=== PATIENT | male | born 1970 | race Caucasian/White ===

== ENCOUNTER 2024-05-08 22:23 | Inpatient (IN) | payer BC ==
[2024-05-09] MEDS ORDERED: Ondansetron ODT 4 MG TAB SL PRN (00:15)
[2024-05-09] MEDS ORDERED: Ondansetron PF 4 MG/2 ML Vial IVP PRN ×2 (00:15→00:50)
[2024-05-09] MEDS ORDERED: Sodium Chloride 0.9% 1,000 ML IV SCH (00:15)
[2024-05-09] MEDS ORDERED: Morphine 4 MG/ML VIAL ONE (00:43)
[2024-05-09] MEDS ORDERED: Dextrose 5% in Water 1,000 ML IV PRN (00:50)
[2024-05-09] MEDS ORDERED: Acetaminophen 325 MG TAB PO PRN (00:50)
[2024-05-09] MEDS ORDERED: Dextrose 50% Abboject 50 ML SYRINGE SLOW IVP PRN (00:50)
[2024-05-09] MEDS ORDERED: Glucagon 1 MG/ML KIT IM PRN (00:50)
[2024-05-09] MEDS ORDERED: Morphine 2 MG/ML VIAL SLOW IVP PRN (00:54)
[2024-05-09 01:20] VITALS: BMI 39.4
[2024-05-09] MEDS: Enoxaparin 40 MG (0.4 mL) SYRINGE SC SCH ×2 (02:06→21:02)
[2024-05-09] MEDS: Lactated Ringer's 1,000 ML IV SCH (02:06)
[2024-05-09] MEDS: Dexamethasone 4 mg/ml Vial SLOW IVP SCH (02:07)
[2024-05-09] MEDS: Insulin Lispro 100 UNIT/ML 10 ML VIAL SC PRN (05:57)
[2024-05-09 07:00] LABS: #Basophils Less than 0.03 10x3/uL (0.0-0.2); #Eosinphils Less than 0.03 10x3/uL (0.0-0.7); %Basophils 0.1 % (0.0-1.0); %Lymphocytes 8.4 % (21.0-51.0); %Neutrophils 88.9 % (42.0-75.0); Hemoglobin 13.6 g/dL (14.0-18.0); Mean Corpuscular HGB CONC 33.2 g/dL (32.0-36.0); Mean Corpuscular Hemoglobin 28.9 pg (27.0-31.0); Mean Platelet Volume 9.4 fL (7.4-10.4); Platelet Count 268 10x3/uL (130-400); RBC Distribution Width 13.2 % (11.5-14.5); Red Blood Cell (RBC) Count 4.71 mill/uL (4.70-6.10)
[2024-05-09 07:13] LABS: Vancomycin, Random 9.6 ug/mL (See Comment)
[2024-05-09 07:21] LABS: Anion Gap 12 mmol/L (10-20); BUN (Urea Nitrogen) 17 mg/dL (8.4-25.7); Calc. Creatinine Clearance 127 mL/min (70-130); Carbon Dioxide 22 mmol/L (22-29); Chloride 106 mmol/L (98-107); Estimated GFR 92; Glucose 270 mg/dL (70-105); Potassium 4.7 mmol/L (3.5-5.1); Sodium 135 mmol/L (136-145)
[2024-05-09] MEDS: Cefepime 1 GM in Sodium Chloride 0.9% 100 ML IVPB SCH (08:11)
[2024-05-09] MEDS: Vancomycin 1 GM in Premix 1 BAG IVPB SCH (09:11)
[2024-05-09 15:18] LABS: Hemoglobin A1c 8.5 % (4.0-6.0)
[2024-05-09] MEDS ORDERED: Vancomycin (BATCH) 1.25 GM in Premix 1 BAG IVPB SCH (21:00)
[2024-05-09] MEDS: Amoxicillin/Potassium Clav 875 MG TAB PO SCH (21:02)
[2024-05-09] MEDS: Insulin Glargine 30 UNITS/0.3 ML VIAL SC SCH (21:03)
[2024-05-09] MEDS: Pregabalin 75 MG CAP PO SCH (21:03)
[2024-05-10] MEDS ORDERED: Insulin Lispro 100 UNIT/ML 10 ML VIAL SC PRN (05:28)
[2024-05-10] MEDS: Insulin Lispro 100 UNIT/ML 10 ML VIAL SC PRN (05:46)
[2024-05-10 07:03] LABS: Hemoglobin 13.3 g/dL (14.0-18.0); Mean Corpuscular HGB CONC 33.3 g/dL (32.0-36.0); Mean Corpuscular Hemoglobin 28.8 pg (27.0-31.0); Mean Corpuscular Volume 86.6 fL (78.0-98.0); Mean Platelet Volume 9.9 fL (7.4-10.4); Platelet Count 336 10x3/uL (130-400); RBC Distribution Width 13.2 % (11.5-14.5); Red Blood Cell (RBC) Count 4.62 mill/uL (4.70-6.10)
[2024-05-10 07:57] LABS: BUN (Urea Nitrogen) 26 mg/dL (8.4-25.7); Bilirubin, Direct 0.2 mg/dL (0.1-0.3); Bilirubin, Total 0.3 mg/dL (0.2-1.2); Critical Call Chemistry NUR.LG14@0800
[2024-05-10 08:00] LABS: ALT (SGPT) 30 U/L (8-55); AST (SGOT) 23 U/L (5-34); Albumin 2.4 g/dL (3.5-5.0); Alkaline Phosphatase 126 U/L (40-110); Anion Gap 12 mmol/L (10-20); Calc. Creatinine Clearance 121 mL/min (70-130); Calcium 9.1 mg/dL (7.8-10.44); Carbon Dioxide 22 mmol/L (22-29); Chloride 106 mmol/L (98-107); Estimated GFR 86; Glucose 431 mg/dL (70-105); Magnesium 2.3 mg/dL (1.6-2.6); Potassium 4.7 mmol/L (3.5-5.1); Protein, Total 6.5 g/dL (6.0-8.3); Sodium 135 mmol/L (136-145)
[2024-05-10 08:43] VITALS: BP 131/74; TEMP 97.4
[2024-05-10] MEDS: Aspirin 81 mg Enteric Coated Tablet PO SCH (08:58)
[2024-05-10] MEDS: Lisinopril 5 MG TAB PO SCH (08:58)
[2024-05-10] MEDS: Rosuvastatin 20 MG TAB PO SCH (08:58)
[2024-05-10] MEDS: Pantoprazole DR 40 MG TAB PO SCH (08:58)
[2024-05-10] MEDS: Dexamethasone 4 MG TAB PO SCH (08:59)
[2024-05-10 09:09] LABS: Burr Cells SLIGHT = 2-5 cells HPF (0-1); Lymphocytes 6 % (21-51); Monocytes 2 % (0-10); Neutrophil 92 % (42-75); Platelet Adequacy Comment Platelets Normal; Polychromasia SLIGHT = 2-3 cells HPF (0-2)
[2024-05-10] MEDS: Insulin NPH Human Isophane 100 UNITS/ML (10 ML VIAL) SC SCH (10:37)
[2024-05-10] MEDS ORDERED: Insulin Glargine 30 UNITS/0.3 ML VIAL SC SCH (21:00)
== END 2024-05-10 14:27 | disposition home or self-care (01) | DRG 153 ==
LOC: ERS 22:23 → T4-B 23:57
PROVIDERS: ADMIT Internal Medicine; ATTEND Family Medicine
DX: J05.10 Acute epiglottitis without obstruction (principal); I10 Essential (primary) hypertension; E78.5 Hyperlipidemia, unspecified; G47.33 Obstructive sleep apnea (adult) (pediatric); Z91.041 Radiographic dye allergy status; Z88.1 Allergy status to other antibiotic agents; Z79.899 Other long term (current) drug therapy; E66.9 Obesity, unspecified; Z98.890 Other specified postprocedural states; Z68.39 Body mass index [BMI] 39.0-39.9, adult; Z79.4 Long term (current) use of insulin; E11.65 Type 2 diabetes mellitus with hyperglycemia
CPT/HCPCS: 36415; 36416; 80048; 80076; 80202; 83036; 83735; 85025; 87081; 87430; 96374; J0692; J1100; J1650; J1815; J2270; J3370-JW; J3490; J7120; J8540